=== PATIENT | female | born 1990 | race Caucasian/White ===

== ENCOUNTER 2017-12-26 13:08 | Emergency (ER) | payer OTHER ==
[~2017-12-26] VITALS: Ht 154.9 cm; Wt 61.7 kg
[2017-12-26 13:10] VITALS: BP 126/72
--- NOTE | 2017-12-26 13:18 | ED GENERAL ADULT ---
History of Present Illness General Chief Complaint: General Adult Stated Complaint: NEEDLESTICK Source: patient Exam Limitations: no limitations Vital Signs & Intake/Output Vital Signs & Intake/Output Vital Signs Date Time Temp Pulse Resp B/P B/P Pulse O2 O2 Flow FiO2 Mean Ox Delivery Rate 12/26 1310 98.8 80 18 126/72 100 Room Air Allergies Coded Allergies: NO KNOWN ALLERGIES (10/17/11) Triage Note: 27 Y/O FEMALE PRESENTS S/P ACCIDENTAL NEEDLESTICK. PT STATES SHE WAS INJECTING IM MEDICATION TO PT, "SHE MOVED AND I STUCK MYSELF", L THUMB AFFECTED. PT WASHED FINGER IMMEDIATELY. NURSERY RN INFORMED. BACK HANGER BEING PAGED. SOURCE PT REMAINS IN ED Triage Nurses Notes Reviewed? yes Onset: Abrupt Duration: minute(s): Timing: single episode today Injury Environment: work : Yes Patient currently breastfeeds: No HPI: 27-year-old female comes into the emergency room for further evaluation after you stick injury. Patient accidentally stuck herself after administering intramuscular injection to her left thumb. She had some blood. She washed it immediately with saline and peroxide. Source patient known. She signed in for further evaluation. Denies any numbness or tingling or injury anywhere else. She is a possibly 5 months (Antonio Horn) Past History Travel History Traveled to [place] past 21 day No Medical History Any Pertinent Medical History? 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 No (Antonio Horn) Review of Systems Review of Systems Constitutional: Reports: no symptoms. EENTM: Reports: no symptoms. Respiratory: Reports: no symptoms. Cardiovascular: Reports: no symptoms. GI: Reports: no symptoms. Genitourinary: Reports: no symptoms. Musculoskeletal: Reports: see HPI. Skin: Reports: no symptoms. Neurological/Psychological: Reports: no symptoms. Hematologic/Endocrine: Reports: no symptoms. Immunologic/Allergic: Reports: no symptoms. All Other Systems: Reviewed and Negative (Antonio Horn) Physical Exam Physical Exam General Appearance: well developed/nourished, alert, awake Head: atraumatic Eyes: Bilateral: normal appearance. Ears, Nose, Throat: normal ENT inspection, hearing grossly normal Neck: normal inspection Respiratory: no respiratory distress Back: normal inspection Extremities: small puncture to left thumb, Neurologic/Psych: awake, alert Core Measures ACS in differential dx? No CVA/TIA Diagnosis: No Sepsis Present: No Sepsis Focused Exam Completed? No (Antonio Horn) Progress Differential Diagnoses I considered the following diagnoses in my evaluation of the patient: HIV, hepatitis, cellulitis, foreign body, Plan of Care: Orders Procedure Date/time Status HIV EXPOSURE/NEEDLESTICK 12/26 1312 Complete HEPT C ANTIBODY 12/26 1312 Complete HEPT B SURFACE ANTIBODY 12/26 1312 Complete GAMMA GLUTAMYL TRANSFERASE 12/26 1312 Complete COMPREHENSIVE METABOLIC PANEL 12/26 1312 Complete CBC WITHOUT DIFFERENTIAL 12/26 1312 Complete TRNSFRASE ASPART AMINO 12/26 1312 Complete TRNSFRAS ALANINE AMINO 12/26 131 Complete Laboratory Tests 12/26/17 1325: Anion Gap 11, Estimated GFR > 60, BUN/Creatinine Ratio 22.0, Glucose 69, Calcium 9.1, Total Bilirubin 0.8, GGT 10 L, AST 31, ALT 28, Alkaline Phosphatase 45, Total Protein 6.9, Albumin 3.9, Globulin 3.0, Albumin/Globulin Ratio 1.3, CBC w Diff MAN DIFF ORDERED, RBC 4.31, MCV 65.2 L, MCH 21.0 L, MCHC 32.2 L, RDW 16.1 H, MPV 9.1, Gran % 73.3, Lymphocytes % 20.5, Monocytes % 5.4, Eosinophils % 0.7, Basophils % 0.1, Absolute Granulocytes 5.2, Segmented Neutrophils 74, Band Neutrophils 2, Absolute Lymphocytes 1.5, Lymphocytes 17 L, Monocytes 6, Absolute Monocytes 0.4, Eosinophils 1, Absolute Eosinophils 0, Absolute Basophils 0, Platelet Estimate ADEQUATE, Hypochromic-Microcytic 1+, Poikilocytosis 1+, Basophilic Stippling 2+, Anisocytosis 1+, Elliptocytes FEW, Hep Bs Antibody REACTIVE, Hepatitis C Antibody NONREACTIVE, HIV 1&2 Antibody NONREACTIVE Initial ED EKG: none Comments: 12/26/2017 3:46:47 PM Patient declined HIV prophylaxis. Patient was instructed to follow-up with occupational medicine. The results of the source patient were discussed with the patient. The source patient tested negative for HIV hepatitis C and hepatitis B. Patient will follow-up for 3 months and 6 months repeat labs for HIV and hepatitis C. (Antonio Horn) Departure Departure Disposition: HOME OR SELF CARE Condition: Stable Clinical Impression Primary Impression: Needlestick injury accident Referrals: Gordon SHAW,Mark Jo (PCP/Family) Additional Instructions: Follow-up with occupational medicine. Return if any concerns worsening symptoms. Please go over all results of today's visit with your primary care doctor. Contact your primary care doctor to let them know you were here in the emergency room. There may be nonspecific findings which may not be related to your visit today here in the emergency room but may require further evaluation and chronic monitoring by your primary care doctor. If you had a laceration today the chance of foreign body always remains. You should follow-up with your primary care doctor for recheck in 3-5 days for a wound check. If you had an x-ray done there is a chance that a fracture could have been missed on initial read and you should follow-up with your primary care doctor for repeat x-rays if symptoms persist. If your blood pressure was elevated here in the emergency room please have rechecked by [facility] primary care doctor within the next 48. If you were prescribed a narcotic here in the emergency room or any type of controlled substances you're not allowed to drive while taking this medication or operate any type of heavy machinery. Narcotics can make you feel lightheaded dizziness nausea and can cause constipation. You may need to poultry picker a stool softener. Thank you for choosing [facility] emergency room. Please return to the emergency room immediately if you have any other concerns worsening of symptoms. Departure Forms: Customer Survey [employer] Employee Acc Report General Discharge Information (Antonio Horn) PA/FUR MATCHER Co-Sign Statement Statement: ED Attending supervision documentation- [] I saw and evaluated the patient. I have also reviewed all the pertinent lab results and diagnostic results. I agree with the findings and the plan of care as documented in the PA's/FUR MATCHER's documentation. [X] I have reviewed the ED Record and agree with the PA's/FUR MATCHER's documentation. [] Additions or exceptions (if any) to the PAs/FUR MATCHER's note and plan are summarized below: [] (Gurvinder Melgoza DO) Critical Care Note Critical Care Note Critical Care Time: non-applicable (Bony VIERA,Antonio)
[2017-12-26 13:34] LABS: ABSOLUTE BASOPHIL COUNT 0 /CUMM (0.0-0.2); ABSOLUTE EOSINOPHIL COUNT 0 /CUMM (0.0-0.7); ABSOLUTE GRANULOCYTE CT 5.2 /CUMM (1.4-6.5); ABSOLUTE LYMPH COUNT 1.5 /CUMM (1.2-3.4); ABSOLUTE MONOCYTE COUNT 0.4 /CUMM (0.10-0.60); BASOPHIL % 0.1 % (0.0-2.0); EOSINOPHIL % 0.7 % (0-5); GRANULOCYTE % 73.3 % (42.2-75.2); HEMATOCRIT 28.1 % (37-47); MEAN CORPUSCULAR HGB CONC 32.2 G/DL (33.0-37.0); MEAN CORPUSCULAR VOLUME 65.2 FL (81.0-99.0); MEAN PLATELET VOLUME 9.1 FL (7.4-10.4); PLATELET COUNT 257 /CUMM (130-400); RBC DISTRIBUTION WIDTH 16.1 % (11.5-14.5); RED BLOOD CELL CT 4.31 /CUMM (4.20-5.40); WHITE BLOOD CELL COUNT 7.2 /CUMM (4.8-10.8)
== END 2017-12-26 13:53 ==
LOC: ERH 13:08
PROVIDERS: Physician Assistant Medical
DX: S61.032A Puncture wound without foreign body of left thumb without damage to nail, initial encounter (principal); W46.1XXA Contact with contaminated hypodermic needle, initial encounter
CPT/HCPCS: 86803; 87389